=== PATIENT | female | born 1960 | race Caucasian/White ===

== ENCOUNTER 2018-08-25 01:08 | Emergency (ER) | payer OTHER, SELFPAY ==
[2018-08-25 01:16] VITALS: BP 146/89; PULSE 88; RESP 14; TEMP 36.9; O2SAT 98; BMI 25.8
--- NOTE | 2018-08-25 01:18 | ED_ITS ---
HPI - Abdominal Pain General Chief Complaint: Urogenital-Female Stated Complaint: thinks she has a kidney stone Time Seen by Provider: 08/25/18 01:18 Source: patient Mode of arrival: ambulatory Limitations: no limitations History of Present Illness HPI narrative: The patient developed low back pain yesterday morning. The pain has persisted. She now has urinary urgency, and hematuria. She denies associated fever or chills. She does have mild suprapubic discomfort. She had a kidney stone 2 years ago that could not be removed surgically. She reports that the stone never passed. She has no associated changes in appetite, nausea vomiting. The pain is in her lower back, not her mid back. Related Data Previous Rx's Medication Instructions Recorded cephalexin [Keflex] 500 mg PO TID 7 Days #21 cap 08/25/18 Allergies Allergy/AdvReac Type Severity Reaction Status Date / Time Penicillins Allergy Unknown Verified 08/25/18 03:35 Sulfa (Sulfonamide Allergy Unknown Verified 08/25/18 03:35 Antibiotics) Review of Systems Review of Systems All systems reviewed & are unremarkable except as noted in HPI and below Constitutional Denies body ache(s), Denies chills, Denies fever(s) and Denies lethargy ENT Ears, Nose, Mouth, and Throat: Denies neck pain and Denies sore throat Cardiovascular Denies chest pain, Denies palpitations and Denies dyspnea Respiratory Denies cough and Denies dyspnea Gastrointestinal Gastrointestinal: Denies abdominal pain, Denies diarrhea, Denies nausea and Denies vomiting Musculoskeletal Denies back pain and Denies neck pain Integumentary/Breasts Denies rash Endocrine Denies palpitations Hematologic/Lymphatic Denies easy bleeding and Denies easy bruising [facility] Medical History Kidney stone (Acute) No significant past surgical history (Acute) Social History Smoking Status: Never smoker Exam Initial Vital Signs Initial Vital Signs: Vital Signs Temperature 98.4 F 08/25/18 01:16 Pulse Rate 88 08/25/18 01:16 Respiratory Rate 14 08/25/18 01:16 Blood Pressure 146/89 H 08/25/18 01:16 Pulse Oximetry 98 08/25/18 01:16 Const General: cooperative, healthy appearing and comfortable Eyes Conjunctivae: conjunctivae normal Resp Effort & Inspection: normal respiratory effort, able to speak in complete sentences, no respiratory distress and no use of accessory muscles Auscultation: clear to auscultation bilaterally, no rales, no rhonchi and no wheezes Cardio Rate: regular rate Rhythm: regular rhythm Heart Sounds: no click, no gallops, no murmurs and no rubs Pulses: normal peripheral pulses GI Inspection: non-distended Palpation: soft, no hepatosplenomegaly, No guarding, No pulsatile mass and No tender Auscultation: normal bowel sounds Back/Spine/Pelvis Back: No CVA tenderness and other (Mild left lower lumbar tenderness. No restriction of motion.) Skin General: no rashes or lesions noted Neuro General: alert, oriented x3 and no focal motor deficits Speech: speech normal Extrem General: full ROM, no pedal edema and no calf tenderness Course Orders Ordered: ED Orders 08/25/18 01:33 UA Complete [Urinalysis and Microscopic] Stat Urine Culture Stat 08/25/18 02:06 CT kidney ureter bladder (KUB) Stat 08/25/18 02:10 Complete Blood Count AUTO DIFF Stat Comprehensive Metabolic Panel Stat Lactate (Lactic Acid) Stat Lipase Stat Discontinued Medications Sodium Chloride (Normal Saline 0.9%) 1,000 mls @ 250 mls/hr IV CONT AMY Last Infusion: 08/25/18 04:14 Dose: 0 mls/hr Admin: 08/25/18 02:32 Dose: 250 mls/hr Ceftriaxone Sodium/Dextrose (Rocephin) 1 gm in 50 mls @ 100 mls/hr IV NOW ONE Stop: 08/25/18 03:45 Last Infusion: 08/25/18 04:13 Dose: 0 mls/hr Admin: 08/25/18 03:27 Dose: 100 mls/hr Ketorolac Tromethamine (Toradol) 30 mg IV NOW ONE Stop: 08/25/18 02:35 Last Admin: 08/25/18 02:37 Dose: 30 mg Vital Signs - 8 hr 08/25/18 01:16 08/25/18 04:02 08/25/18 04:12 Temperature 98.4 F Pulse Rate 88 79 70 Respiratory Rate 14 14 16 Blood Pressure 146/89 H 121/70 Blood Pressure [Left Arm] 122/91 H Pulse Oximetry 98 98 97 MDM - Abdominal Pain Lab Data Result diagrams: 08/25/18 02:10 08/25/18 02:10 Lab Results 08/25/18 08/25/18 08/25/18 Range/Units 01:33 02:10 02:10 WBC 9.1 (4.5-11.0) X10^3/uL RBC 4.80 (4.0-5.2) X10^6/uL Hgb 14.3 (12.0-16.0) g/dL Hct 43.0 (36-46) % MCV 89.6 (80-100) fL MCH 29.9 (26-34) PG MCHC 33.3 (30-36) % RDW 13.8 (11.6-14.8) % Plt Count 198 (150-400) X10^3/uL Neut % (Auto) 76.5 H (50-75) % Lymph % (Auto) 13.4 L (25-40) % [place] % (Auto) 7.4 (3-14) % Eos % (Auto) 2.1 (2-4) % Baso % (Auto) 0.6 (0-2) % Neut # (Auto) 7000 (2214-4411) /uL Sodium 140 (137-145) mmol/L Potassium 4.3 (3.4-5.1) mmol/L Chloride 104 (98-107) mmol/L Carbon Dioxide 26 (22-32) mmol/L BUN 11 (7-17) mg/dL Creatinine 0.70 (0.52-1.04) mg/dL Estimated GFR > 60.0 (>60) mL/min BUN/Creatinine Ratio 15.7 (6-22) Glucose 97 (70-100) mg/dL Lactate (0.7-2.1) mmol/L Calcium 9.6 (8.4-10.2) mg/dL Total Bilirubin 0.6 (0.2-1.3) mg/dL AST 25 (14-36) IU/L ALT 28 (9-52) IU/L Alkaline Phosphatase 73 (38-126) U/L Total Protein 7.5 (6.3-8.2) g/dL Albumin 4.6 (3.5-5.0) g/dL Globulin 2.9 (1.7-4.1) g/dL Albumin/Globulin Ratio 1.6 (1.0-2.8) Lipase 104 (23-300) U/L Urine Color Yellow Urine Appearance Slightly cloudy Urine pH 6.0 (4.5-8.0) Ur Specific [place] 1.010 (1.000-1.035) Urine Protein Negative (Negative) Urine Glucose (UA) Negative (Normal) g/dL Urine Ketones Negative (NEGATIVE) Urine Occult Blood 3+ H (Negative) Urine Nitrate Negative (Negative) Urine Bilirubin Negative (NEGATIVE) Urine Urobilinogen 0.2 (0.2) E.U./dL Ur Leukocyte Esterase 3+ H (NEGATIVE) Urine RBC 10-30/hpf H (0-5/HPF) Urine WBC 30-100/hpf H (0-5/HPF) Ur Squamous Epith Cells 0-1 /hpf Urine Bacteria Moderate (10-30) H (None) Ur Culture Indicated? Specimen cultured Micro UA Comment Not Reportable 08/25/18 Range/Units 02:10 WBC (4.5-11.0) X10^3/uL RBC (4.0-5.2) X10^6/uL Hgb (12.0-16.0) g/dL Hct (36-46) % MCV (80-100) fL MCH (26-34) PG MCHC (30-36) % RDW (11.6-14.8) % Plt Count (150-400) X10^3/uL Neut % (Auto) (50-75) % Lymph % (Auto) (25-40) % [place] % (Auto) (3-14) % Eos % (Auto) (2-4) % Baso % (Auto) (0-2) % Neut # (Auto) (7617-6763) /uL Sodium (137-145) mmol/L Potassium (3.4-5.1) mmol/L Chloride (98-107) mmol/L Carbon Dioxide (22-32) mmol/L BUN (7-17) mg/dL Creatinine (0.52-1.04) mg/dL Estimated GFR (>60) mL/min BUN/Creatinine Ratio (6-22) Glucose (70-100) mg/dL Lactate 1.2 (0.7-2.1) mmol/L Calcium (8.4-10.2) mg/dL Total Bilirubin (0.2-1.3) mg/dL AST (14-36) IU/L ALT (9-52) IU/L Alkaline Phosphatase (38-126) U/L Total Protein (6.3-8.2) g/dL Albumin (3.5-5.0) g/dL Globulin (1.7-4.1) g/dL Albumin/Globulin Ratio (1.0-2.8) Lipase (23-300) U/L Urine Color Urine Appearance Urine pH (4.5-8.0) Ur Specific [place] (1.000-1.035) Urine Protein (Negative) Urine Glucose (UA) (Normal) g/dL Urine Ketones (NEGATIVE) Urine Occult Blood (Negative) Urine Nitrate (Negative) Urine Bilirubin (NEGATIVE) Urine Urobilinogen (0.2) E.U./dL Ur Leukocyte Esterase (NEGATIVE) Urine RBC (0-5/HPF) Urine WBC (0-5/HPF) Ur Squamous Epith Cells Urine Bacteria (None) Ur Culture Indicated? Micro UA Comment Imaging Data CT scan - abdomen: Radiologist's impression: Bilateral nonobstructing nephrolithiasis. Mild left hydroureteronephrosis. No stones in the ears. Thickened urinary bladder, suggestive of cystitis. MDM Narrative Medical decision making narrative: The patient was evaluated for ureterolithiasis, no obstructing stones were seen. She does have bilateral nephrolithiasis. With the blood seen on the UA along with the pyuria, and the thickening of the bladder noted on CT, she appears to have hemorrhagic cystitis. She will be discharged on antibiotics, with recommended follow up with her PCM. Discharge Plan Departure Patient Disposition: Home Clinical Impression: Acute hemorrhagic cystitis Discharge Date/Time: 08/25/18 04:16 Interventions: ED Discharge Assessment Last Done: 08/25/18 04:12 Instructions: DI for Urinary Tract Infection (UTI) Activity Restrictions/Additional Instructions: Keflex 3 times daily for 7 days. Be sure you are drinking plenty of fluids and stay well hydrated. Take Tylenol or Advil as needed for pain. Return to the ER for increasing pain, or fever. Recheck with her doctor in about 2 weeks to be sure the UTI has been cured. Be sure the blood in the urine has resolved. Prescriptions: New cephalexin [Keflex] 500 mg capsule 500 mg PO TID 7 Days Qty: 21 RF: 0
[2018-08-25 01:52] LABS: Bilirubin Urine UA NEGATIVE (NEGATIVE); Color Urine UA YELLOW; Glucose Urine UA NEGATIVE (Normal); Ketones Urine UA NEGATIVE (NEGATIVE); Leukocyte Esterase Urine UA 3+ (NEGATIVE); Nitrite Urine UA NEGATIVE (Negative); Occult Blood Urine UA 3+ (Negative); Protein Urine UA NEGATIVE (Negative); Urobilinogen Urine UA 0.2 E.U./dL (0.2)
[2018-08-25 01:55] LABS: Appearance Urine UA Slightly Cloudy
[2018-08-25 01:56] LABS: RBC Urine 10-30/HPF (0-5/HPF); Squamous Epithelial Cell Urine 0-1 /HPF; WBC Urine 30-100/HPF (0-5/HPF)
[2018-08-25 01:57] LABS: Bacteria Urine Moderate (10-30); Culture Indicated Urine Specimen Cultured
--- NOTE | 2018-08-25 02:06 | DI.CT.S_ITS ---
PROCEDURE: CT KIDNEY URETER BLADDER (KUB) INDICATIONS: Hematuria. Left flank pain. TECHNIQUE: Noncontrast 5 mm thick sections acquired from the diaphragms to the symphysis. 5 mm thick coronal and sagittal reformats were then performed. For radiation dose reduction, the following was used: automated exposure control, adjustment of mA and/or kV according to patient size. COMPARISON: None. FINDINGS: Image quality: Excellent. Lung bases: Lung bases are clear. Heart size is normal. Urinary system: Both kidneys are normal in size. Nonobstructing stones are seen scattered in bilateral renal parenchyma measures up to 5 mm in size in the pole of right kidney and up to 3 mm in size in the cough left kidney. There is mild prominence of left renal collecting system and left ureter extending to the level of left UVJ. No obstructing stone is seen. No right-sided hydronephrosis or perinephric fat stranding. Both ureters appear non-dilated throughout their expected courses. Borderline bladder wall thickening is seen. No discrete bladder wall mass. no calcified bladder stones. Other solid organs: Liver is normal in size. 1.9 cm cyst is seen in inferior right hepatic lobe posterior segment. Gallbladder is within normal limits. Pancreas is normal in contours. Spleen is normal in size. No adrenal nodules. Peritoneum and bowel: Unenhanced bowel loops demonstrate normal wall thickness and caliber. No free fluid or air. Surgical clips are seen in the right lower quadrant abdomen. No appendix is visualized. Finding likely represent prior appendectomy. Nodes and vessels: No retroperitoneal or mesenteric adenopathy by size criteria. Aorta and inferior vena cava are normal in caliber. Abdominal wall: There is a small periumbilical hernia containing fat only. Pelvis: No free pelvic fluid. No inguinal hernias or adenopathy. Bones: No suspicious bony lesions. No vertebral body compression fractures. IMPRESSION: 1. Mild left-sided hydronephrosis or hydroureter. No obstructing renal stone or ureteral stone is seen. Finding could represent a passed stone. Very mild bladder wall thickening, cystitis cannot be excluded. 2. Bilateral nonobstructing renal calculi. No right-sided hydronephrosis or hydroureter. 3. Small right hepatic cyst. Small fat-containing of helical hernia. No significant discrepancies. Dictated by: Tigre Lopez M.D. on 08/25/2018 at 8:38 Approved by: Tigre Lopez M.D. on 08/25/2018 at 8:45
[2018-08-25] MEDS: SODIUM CHLORIDE 0.9% 1,000 ML 250 ML IV (02:32)
[2018-08-25] MEDS: KETOROLAC 60 MG/2 ML VIAL 30 MG IV (02:37)
[2018-08-25 02:41] LABS: Add Manual Diff / Slide Review NO; Basophils Percent Auto 0.6 % (0-2); Eosinophils Percent Auto 2.1 % (2-4); Hemoglobin 14.3 g/dL (12.0-16.0); Lymphocytes Percent Auto 13.4 % (25-40); Mean Corpuscular HGB Conc 33.3 % (30-36); Mean Corpuscular Hemoglobin 29.9 PG (26-34); Mean Corpuscular Volume 89.6 fL (80-100); Monocytes Percent Auto 7.4 % (3-14); Neutrophils Absolute Auto 7000 /uL (1500-7000); Neutrophils Percent Auto 76.5 % (50-75); Platelet Count 198 X10^3/uL (150-400); Red Cell Distribution Width 13.8 % (11.6-14.8); White Blood Cell Count 9.1 X10^3/uL (4.5-11.0)
[2018-08-25 02:44] LABS: Alanine Aminotransferase 28 IU/L (9-52); Albumin 4.6 g/dL (3.5-5.0); Albumin Globulin Ratio 1.6 (1.0-2.8); Alkaline Phosphatase 73 U/L (38-126); Aspartate Aminotransferase 25 IU/L (14-36); BUN Creatinine Ratio 15.7 (6-22); Bilirubin Total 0.6 mg/dL (0.2-1.3); Blood Urea Nitrogen 11 mg/dL (7-17); Calcium 9.6 mg/dL (8.4-10.2); Carbon Dioxide 26 mmol/L (22-32); Chloride 104 mmol/L (98-107); Estimated Glomerular Filt Rate > 60.0 mL/min (>60); Globulin 2.9 g/dL (1.7-4.1); Glucose 97 mg/dL (70-100); HEMOLYSIS < 15 (0-50); Lactate (Lactic Acid) 1.2 mmol/L (0.7-2.1); Lipase 104 U/L (23-300); Potassium 4.3 mmol/L (3.4-5.1); Sodium 140 mmol/L (137-145); Total Protein 7.5 g/dL (6.3-8.2)
[2018-08-25] MEDS: CEFTRIAXONE 1 GM/50 ML FROZ.PIGGY IV (03:27)
[2018-08-25 04:02] VITALS: BP 122/91; PULSE 79; RESP 14; O2SAT 98
[2018-08-25 04:12] VITALS: BP 121/70; PULSE 70; RESP 16; O2SAT 97
== END 2018-08-25 04:16 | disposition home or self-care (01) ==
PROVIDERS: Emergency Provider Emergency Medicine
DX: N30.01 Acute cystitis with hematuria (principal)
CPT/HCPCS: 36591; 74176; 80053; 81001; 83605; 83690; 85025; 87077; 87086; 87186; 96361; 96365; 96375; 99283; 99284; J1885

== ENCOUNTER → 2018-09-21 12:14 | Outpatient (CLI) | payer OTHER, SELFPAY | PROVIDERS: Visit Provider Physician Assistant | DX: N39.0 Urinary tract infection, site not specified (principal) | CPT/HCPCS: 87086 ==

== ENCOUNTER → 2018-09-28 13:56 | Outpatient (CLI) | payer OTHER, SELFPAY | PROVIDERS: PCP Family Medicine; Visit Provider Family Medicine | DX: Z78.0 Asymptomatic menopausal state (principal); Z85.3 Personal history of malignant neoplasm of breast; E28.39 Other primary ovarian failure; Z92.21 Personal history of antineoplastic chemotherapy | CPT/HCPCS: 77080 ==

== ENCOUNTER → 2018-10-12 13:51 | Outpatient (CLI) | payer OTHER, SELFPAY ==
--- NOTE | 2018-10-12 14:27 | DI.CT.S_ITS ---
PROCEDURE: CT CHEST W CON INDICATIONS: surveillance breast cancer TECHNIQUE: After the administration of intravenous contrast, 5 mm thick sections acquired from the pulmonary apices to the posterior costophrenic angles. 7 mm thick coronal and sagittal MIP reformats were acquired. For radiation dose reduction, the following was used: automated exposure control, adjustment of mA and/or kV according to patient size. COMPARISON: [facility], CT, CT KIDNEY URETER BLADDER (KUB), 08/25/2018, 2:05. FINDINGS: Image quality: Excellent. Lungs and pleura: No acute air space opacities. No pleural effusions or pneumothorax. Central and peripheral airways are patent and normal in caliber. There is a 4 mm groundglass like appearing nodule in the right upper lobe on series 3 image 17. Similar-appearing nodule is present along the right major fissure measuring 4 mm on series 3 image 28. A third nodule in the right lower lobe measuring 3 mm is seen on series 3 image 29. 7 mm nodule is present within the right base adjacent to the hemidiaphragm, unchanged. There are two, 2 mm nodules within the left lower lobe on series 3 image 31. Mediastinum: Heart size is normal. No pericardial effusion. No mediastinal or hilar adenopathy by size criteria. Thoracic aorta and central pulmonary arteries are normal in size. Esophagus is normal in caliber. No hiatal hernia. Bones and chest wall: No suspicious bony lesions. No vertebral body compression fractures. No axillary or supraclavicular adenopathy by size criteria. Thyroid gland is unremarkable. Abdomen: Partially visualized low attenuation focus within the posterior liver, appearing unchanged and likely cystic. Nonobstructing left renal calculi are noted. Visualized upper abdominal solid organs appear normal. Upper abdominal bowel loops are normal in caliber. IMPRESSION: 1. Non-specific bilateral nodules some appearing to be groundglass like in appearance. The largest is 7 mm in the left base and unchanged compared to 08/25/18. Recommend continued short interval imaging followup to document stability given history of breast cancer. Dictated by: Angie Brady M.D. on 10/12/2018 at 16:07 Approved by: Angie Brady M.D. on 10/12/2018 at 16:15
== END ==
PROVIDERS: PCP Family Medicine
DX: C50.919 Malignant neoplasm of unspecified site of unspecified female breast (principal); R91.8 Other nonspecific abnormal finding of lung field
CPT/HCPCS: 71260; Q9967

== ENCOUNTER → 2018-12-19 11:55 | Outpatient (CLI) | payer OTHER, SELFPAY | PROVIDERS: PCP Family Medicine; Visit Provider Physician Assistant | DX: R39.9 Unspecified symptoms and signs involving the genitourinary system (principal) | CPT/HCPCS: 87086 ==

== ENCOUNTER → 2018-12-23 12:15 | Outpatient (CLI) | payer OTHER, SELFPAY ==
--- NOTE | 2018-12-23 | DI.MG.S_ITS ---
BILATERAL DIGITAL SCREENING MAMMOGRAM 3D/2D WITH CAD POST LUMPECTOMY: 12/23/2018 CLINICAL: Routine screening. Personal history of breast cancer. Comparison is made to exams dated: 12/22/2017 mammogram, 06/19/2017 mammogram, and 12/18/2016 [facility]ogram - [facility]. The tissue of both breasts is extremely dense, which lowers the sensitivity of mammography. Current study was also evaluated with a Computer Aided Detection (CAD) system. No significant masses, calcifications, or other findings are seen in either breast. IMPRESSION: NEGATIVE There is no mammographic evidence of malignancy. Return to annual mammogram screening schedule is recommended. This exam was interpreted at Station ID: [id number]. NOTE: For mammograms, a report in lay terms will be sent to the patient. Approximately 15% of breast malignancies will not be visualized mammographically. In the management of a palpable breast mass, a negative mammogram must not discourage biopsy of a clinically suspicious lesion. Electronically Signed By: Roslyn Arreaga M.D. lk/:12/25/2018 13:41:50 copy to: NATIVIDAD YIP letter sent: Normal Exam ACR BI-RADS Category 1: Negative 3341F
== END ==
PROVIDERS: PCP Family Medicine
DX: Z12.31 Encounter for screening mammogram for malignant neoplasm of breast (principal); Z85.3 Personal history of malignant neoplasm of breast
CPT/HCPCS: 77063; 77067

== ENCOUNTER → 2018-12-30 15:52 | Outpatient (CLI) | payer OTHER, SELFPAY | PROVIDERS: PCP Family Medicine; Visit Provider Family Medicine | DX: N89.8 Other specified noninflammatory disorders of vagina (principal) | CPT/HCPCS: 87077; 87086; 87186; 87491; 87591 ==

== ENCOUNTER → 2019-01-05 15:33 | Outpatient (CLI) | payer OTHER, SELFPAY | PROVIDERS: PCP Family Medicine; Visit Provider Family Medicine ==

== ENCOUNTER → 2019-04-05 12:33 | Outpatient (CLI) | payer OTHER, SELFPAY ==
--- NOTE | 2019-04-05 12:35 | DI.CT.S_ITS ---
PROCEDURE: CT CHEST W CON INDICATIONS: f/u nodules, h/o breast cancer TECHNIQUE: After the administration of intravenous contrast, 5 mm thick sections acquired from the pulmonary apices to the posterior costophrenic angles. 1 mm axial lung, 5 mm thick coronal and sagittal reformats and 7 mm axial MIP were acquired. For radiation dose reduction, the following was used: automated exposure control, adjustment of mA and/or kV according to patient size. COMPARISON: [facility], CT, CT CHEST W CON, 10/12/2018, 13:58. FINDINGS: Image quality: Excellent. Lungs and pleura: Stable several scattered groundglass pulmonary nodules. -For example right lower lobe nodule measuring 7 mm, (3/240), previously 7 mm, and more remotely 8 mm on 08/25/2018. -Right upper lobe nodule measuring 5 mm, (3/74), previously 5 mm. No new nodules identified. No consolidation. No pleural effusions or pneumothorax. Central and peripheral airways are patent and normal in caliber. Mediastinum: Heart size is normal. No pericardial effusion. No mediastinal or hilar adenopathy by size criteria. Thoracic aorta and central pulmonary arteries are normal in size. Esophagus is normal in caliber. No hiatal hernia. Bones and chest wall: No suspicious bony lesions. No vertebral body compression fractures. Right axillary clips. No axillary or supraclavicular adenopathy by size criteria. Thyroid gland is within normal limits. Punctate hypodense nodule in the right. Abdomen: Left kidney superior pole monitor and calculus measuring 4 mm, (2/56), unchanged. Visualized upper abdominal solid organs otherwise appear normal. Upper abdominal bowel loops are normal in caliber. IMPRESSION: 1. Stable scattered ground glass pulmonary nodules. The nodule at the right lower lobe this groundglass and measures 7 mm and is not significantly changed in size compared to August 2018. No new nodules identified. Differential includes metastatic disease, infectious/inflammatory etiology. 2. No suspicious adenopathy. 3. Nonobstructing renal stone the left kidney. Dictated by: Marc Delgado M.D. on 04/05/2019 at 14:25 Approved by: Marc Delgado M.D. on 04/05/2019 at 14:56
[2019-04-05 13:00] LABS: Add Manual Diff / Slide Review NO; Basophils Absolute Auto 0 /uL (0-100); Eosinophils Absolute Auto 100 /uL (0-450); Eosinophils Percent Auto 4.6 % (2-4); Hematocrit 42.9 % (36-46); Hemoglobin 14.2 g/dL (12.0-16.0); Lymphocytes Absolute Auto 1400 /uL (1100-4500); Lymphocytes Percent Auto 44.1 % (25-40); Mean Corpuscular HGB Conc 33.2 % (30-36); Mean Corpuscular Hemoglobin 30.1 PG (26-34); Mean Corpuscular Volume 90.6 fL (80-100); Monocytes Absolute Auto 400 /uL (0-900); Monocytes Percent Auto 11.3 % (3-14); Neutrophils Absolute Auto 1200 /uL (1500-7000); Platelet Count 198 X10^3/uL (150-400); Red Blood Cell Count 4.73 X10^6/uL (4.0-5.2); Red Cell Distribution Width 13.9 % (11.6-14.8); White Blood Cell Count 3.1 X10^3/uL (4.5-11.0)
[2019-04-05 13:17] LABS: Alanine Aminotransferase 33 IU/L (9-52); Albumin 4.5 g/dL (3.5-5.0); Albumin Globulin Ratio 1.5 (1.0-2.8); Alkaline Phosphatase 84 U/L (38-126); Aspartate Aminotransferase 26 IU/L (14-36); BUN Creatinine Ratio 26.7 (6-22); Bilirubin Total 0.6 mg/dL (0.2-1.3); Blood Urea Nitrogen 16 mg/dL (7-17); Calcium 9.8 mg/dL (8.4-10.2); Carbon Dioxide 23 mmol/L (22-32); Chloride 107 mmol/L (98-107); Estimated Glomerular Filt Rate > 60.0 mL/min (>60); Glucose 88 mg/dL (70-100); HEMOLYSIS < 15 (0-50); Potassium 4.3 mmol/L (3.4-5.1); Sodium 140 mmol/L (137-145); Total Protein 7.5 g/dL (6.3-8.2)
== END ==
PROVIDERS: PCP Family Medicine
DX: C50.919 Malignant neoplasm of unspecified site of unspecified female breast (principal); R91.8 Other nonspecific abnormal finding of lung field; N20.0 Calculus of kidney
CPT/HCPCS: 36415; 71260; 80053; 85025; Q9967

== ENCOUNTER → 2019-10-21 12:23 | Outpatient (CLI) | payer OTHER, SELFPAY ==
[2019-10-21 13:36] LABS: HEMOLYSIS < 15 (0-50); Potassium 4.5 mmol/L (3.4-5.1)
== END ==
PROVIDERS: PCP Nurse Practitioner Family; Referring Provider Nurse Practitioner Family; Visit Provider Nurse Practitioner Family
DX: E87.5 Hyperkalemia (principal)
CPT/HCPCS: 36415; 84132

== ENCOUNTER → 2019-10-25 09:57 | Outpatient (CLI) | payer OTHER, SELFPAY ==
[2019-10-25 11:07] LABS: Cholesterol 189 mg/dL (140-199); HDL Cholesterol 59 mg/dL (40-60); LDL Cholesterol Calculated 95 mg/dL (<100); Triglycerides 173 mg/dL (35-150)
== END ==
PROVIDERS: PCP Nurse Practitioner Family; Referring Provider Nurse Practitioner Family; Visit Provider Nurse Practitioner Family
DX: Z13.6 Encounter for screening for cardiovascular disorders (principal)
CPT/HCPCS: 36415; 80061

== ENCOUNTER → 2020-02-19 09:42 | Outpatient (CLI) | payer OTHER, SELFPAY ==
--- NOTE | 2020-02-19 09:56 | DI.MG.S_ITS ---
BILATERAL DIGITAL SCREENING MAMMOGRAM 3D/2D WITH CAD POST LUMPECTOMY: 02/19/2020 CLINICAL: Routine screening. Personal history of right breast cancer. Comparison is made to exams dated: 12/23/2018 mammogram - [facility], 12/22/2017 mammogram, and 06/19/2017 mammogram - [facility]. There are scattered fibroglandular elements in both breasts. Current study was also evaluated with a Computer Aided Detection (CAD) system. There are benign calcifications in the left breast. There also are benign post operative findings in the right breast. No significant masses, calcifications, or other findings are seen in either breast. There has been no significant interval change. IMPRESSION: There is no mammographic evidence of malignancy. A 1 year screening mammogram is recommended. This exam was interpreted at Station ID: [id number]. NOTE: For mammograms, a report in lay terms will be sent to the patient. Approximately 15% of breast malignancies will not be visualized mammographically. In the management of a palpable breast mass, a negative mammogram must not discourage biopsy of a clinically suspicious lesion. Electronically Signed By: Massimo nava/rc:02/21/2020 08:40:40 copy to: HERO COLE letter sent: Normal Exam ACR BI-RADS Category 2: Benign Finding(s) 3342F
== END ==
PROVIDERS: PCP Nurse Practitioner Family; Referring Provider Internal Medicine Hematology & Oncology; Visit Provider Internal Medicine Hematology & Oncology
DX: Z12.31 Encounter for screening mammogram for malignant neoplasm of breast (principal); Z85.3 Personal history of malignant neoplasm of breast
CPT/HCPCS: 77063; 77067

== ENCOUNTER → 2020-02-29 10:43 | Outpatient (CLI) | payer OTHER, SELFPAY ==
--- NOTE | 2020-02-29 | DI.CT.S_ITS ---
PROCEDURE: CT KIDNEY URETER BLADDER (KUB) INDICATIONS: Personal history of urinary calculi TECHNIQUE: Noncontrast 5 mm thick sections acquired from the diaphragms to the symphysis. 5 mm thick coronal and sagittal reformats were then performed. For radiation dose reduction, the following was used: automated exposure control, adjustment of mA and/or kV according to patient size. COMPARISON: [facility], CT, CT KIDNEY URETER BLADDER (KUB), 08/25/2018, 2:05. FINDINGS: Image quality: Excellent. Lung bases: Lung bases are clear. Heart size is normal. Urinary system: Both kidneys are normal in size. There are approximately 3 punctate nonobstructing left hand for nonobstructing right renal calcifications. There is a calcification noted at the margin of the right renal pelvis/proximal ureter. This appears new compared to prior exam. No hydronephrosis or perinephric fat stranding. Both ureters appear non-dilated throughout their expected courses. Bladder wall thickness is normal; no calcified bladder stones. Other solid organs: Liver is enlarged steatosis. Posterior right hepatic lobe cyst is noted. Gallbladder is unremarkable. Pancreas is normal in contours. Spleen is normal in size. No adrenal nodules. Peritoneum and bowel: Unenhanced bowel loops demonstrate normal wall thickness and caliber. No free fluid or air. Colonic diverticula are present. Nodes and vessels: No retroperitoneal or mesenteric adenopathy by size criteria. Aorta and inferior vena cava are normal in caliber. Abdominal wall: No ventral hernias. Pelvis: No free pelvic fluid. No inguinal hernias or adenopathy. Bones: No suspicious bony lesions. No vertebral body compression fractures. IMPRESSION: 1. Bilateral nonobstructing renal calculi as above. 2. Diverticulosis. 3. Hepatic cyst. Dictated by: Angie Brady M.D. on 02/29/2020 at 15:55 Approved by: Angie Brady M.D. on 02/29/2020 at 15:58
== END ==
PROVIDERS: PCP Nurse Practitioner Family; Referring Provider Physician Assistant; Visit Provider Physician Assistant
DX: N20.0 Calculus of kidney (principal); K76.89 Other specified diseases of liver; K76.0 Fatty (change of) liver, not elsewhere classified; K57.90 Diverticulosis of intestine, part unspecified, without perforation or abscess without bleeding; Z87.442 Personal history of urinary calculi
CPT/HCPCS: 74176

== ENCOUNTER → 2020-04-05 13:23 | Outpatient (CLI) | payer OTHER, SELFPAY ==
[2020-04-05 16:09] LABS: Calcium 10.2 mg/dL (8.4-10.2); Uric Acid 4.4 mg/dL (2.5-6.2)
[2020-04-06 08:11] LABS: Parathyroid Hormone Int 19 pg/mL (15-65)
== END ==
PROVIDERS: Specialist; PCP Nurse Practitioner Family; Referring Provider Nurse Practitioner Family; Visit Provider Nurse Practitioner Family
DX: C50.911 Malignant neoplasm of unspecified site of right female breast; M85.852 Other specified disorders of bone density and structure, left thigh; Z78.0 Asymptomatic menopausal state; N20.0 Calculus of kidney; N39.0 Urinary tract infection, site not specified; R30.0 Dysuria; Z17.0 Estrogen receptor positive status [ER+]; Z79.811 Long term (current) use of aromatase inhibitors
CPT/HCPCS: 36415; 77080; 82310; 83970; 84550

== ENCOUNTER 2020-09-14 10:36 | Emergency (ER) | payer OTHER, SELFPAY ==
[2020-09-14 10:42] VITALS: BP 160/89; PULSE 76; RESP 16; TEMP 36.5; O2SAT 100; BMI 25.7
--- NOTE | 2020-09-14 10:55 | ED_ITS ---
HPI - Female Genitourinary <LIONEL Azul-BC - Last Filed: 09/14/20 15:04> General Chief complaint: Urogenital-Female Stated complaint: UTI Time Seen by Provider: 09/14/20 10:45 Source: patient Mode of arrival: Ambulatory Limitations: no limitations History of Present Illness HPI Narrative: The patient is a 60-year-old female former smoker with history of urinary tract infections who presents with a chief complaint of a UTI. She states this has been ongoing for the past 2 days. She has dysuria urgency or frequency. She noticed some color change to her urine. She denies any flank pain or back pain. She denies any abdominal pain nausea vomiting or diarrhea. She denies any vaginal bleeding, vaginal discharge or concern about sexually transmitted infections. MD Complaint: UTI Related Data Home Medications Medication Instructions Recorded Confirmed ibuprofen 200 mg tablet 400 mg PO Q6H PRN tab 10/21/19 04/18/20 ascorbic acid 1,000 1,000 mg PO DAILY PRN 04/18/20 04/18/20 pn-erfsmhcxomux-msbudstm powder effervescent pack Previous Rx's Medication Instructions Recorded anastrozole [Arimidex] 1 mg PO DAILY #90 tab 03/02/20 nitrofurantoin macrocrystal 100 mg PO BID #14 cap 09/14/20 Allergies Allergy/AdvReac Type Severity Reaction Status Date / Time Penicillins Allergy Intermediate Blisters Verified 09/14/20 10:45 on palms and feet. Sulfa (Sulfonamide Allergy Intermediate Turns Verified 09/14/20 10:45 Antibiotics) bright red all over cephalexin AdvReac Mild Slight Verified 09/14/20 10:45 rash on forehead latex AdvReac unsure of Verified 09/14/20 10:45 reaction. Review of Systems <ANTHONY AzulBC - Last Filed: 09/14/20 15:04> Review of Systems Narrative: GENERAL: Denies chills, fatigue, malaise, fever, sweats. HEENT: Denies sinus pain, ear pain, sore throat, difficulty swallowing, dizziness. RESPIRATORY: Denies dyspnea, cough, wheezing, hemoptysis, sputum. CARDIOVASCULAR: Denies chest pain, palpitations, orthopnea, edema, GASTROINTESTINAL: Denies nausea, vomiting, abdominal pain, diarrhea, constipation, melena. : See HPI MUSCULOSKELETAL: denies weakness, joint pain, or bony pain SKIN: Denies rash, skin lesions, or other NEUROLOGIC: Denies weakness, headache, numbness, change in speech, confusion, s eizures, incoordination. PSYCHIATRIC: No concerning psychosocial issues. 12 point review of systems is negative except for those stated above Patient History <MICHAEL Azul - Last Filed: 09/14/20 15:04> Medical History Abnormal chest xray (~2015) Alopecia (~2017) Aromatase inhibitor use (11/2015) Bilateral nephrolithiasis Bilateral nephrolithiasis Breast cancer (~2015) Heavy menstrual period History of radiation therapy (~2015) History of recurrent UTI (urinary tract infection) Irregular menstrual cycle Osteopenia Painful menstrual periods Recurrent UTI (urinary tract infection) Vision disorder Surgical History Anesthesia History of delivery (~1995) History of delivery (~1999) History of eye surgery (~2013) History of lumpectomy (~2015) Kidney stone (~2014) No significant past surgical history Family History Father No problems noted. Mother Cancer Grandmother Cancer Grandmother Cancer alcohol intake frequency: a few times a week Substance Use Type: marijuana Exam <MICHAEL Azul - Last Filed: 09/14/20 15:04> Narrative Exam Narrative: GENERAL: This is a well-nourished, well-developed patient, in no acute distress HEAD: Atraumatic. Normocephalic. No temporal or scalp tenderness. EYES: Pupils equal round and reactive. Extraocular motions intact. No scleral icterus. No injection or drainage. ENT: Nose without bleeding, purulent drainage or septal hematoma. Wearing a mask Airway patent. NECK: Trachea midline. No JVD or lymphadenopathy. Supple, nontender, no meningeal signs. CARDIOVASCULAR: Regular rate and rhythm RESPIRATORY: Clear to auscultation. Breath sounds equal bilaterally. No wheezes, rales, or rhonchi. No cough. No increased respiratory effort. No accessory muscle use GASTROINTESTINAL: Abdomen soft, non-tender, nondistended. No guarding Active bowel sounds all 4 quadrants. No CVA tenderness to palpation. EXTREMITIES: No clubbing, cyanosis, or edema. No joint tenderness, effusion, or edema noted. BACK: Nontender without deformity or crepitance. No flank tenderness. NEURO: AOx3. SKIN: No rash or erythema on visible skin Initial Vital Signs Initial Vital Signs: Vital Signs Temperature 97.7 F 09/14/20 10:42 Pulse Rate 76 09/14/20 10:42 Respiratory Rate 16 09/14/20 10:42 Blood Pressure 160/89 H 09/14/20 10:42 Pulse Oximetry 100 09/14/20 10:42 <Rach Sprague MD - Last Filed: 09/15/20 07:34> Initial Vital Signs Initial Vital Signs: Vital Signs Temperature 97.7 F 09/14/20 10:42 Pulse Rate 76 09/14/20 10:42 Respiratory Rate 16 09/14/20 10:42 Blood Pressure 160/89 H 09/14/20 10:42 Pulse Oximetry 100 09/14/20 10:42 Scores <MICHAEL Azul - Last Filed: 09/14/20 15:04> GCS [place] coma scale eye opening: Spontaneous [place] coma scale verbal response: Orientated Carla coma scale motor response: Obey commands [place] coma scale total score: 15 Course <MICHAEL Azul - Last Filed: 09/14/20 15:04> Orders Ordered: Discontinued Medications Nitrofurantoin Macrocrystals (Nitrofurantoin Er 100 Mg Capsule) 100 mg PO NOW ONE Stop: 09/14/20 11:20 Last Admin: 09/14/20 11:26 Dose: 100 mg Documented by: DEBOARHM Vital Signs Vital signs: Vital Signs - 8 hr 09/14/20 10:42 09/14/20 11:48 Temperature 97.7 F Pulse Rate 76 61 Respiratory Rate 16 Blood Pressure 160/89 H 147/95 H Pulse Oximetry 100 99 <Rach Sprague MD - Last Filed: 09/15/20 07:34> Orders Ordered: Discontinued Medications Nitrofurantoin Macrocrystals (Nitrofurantoin Er 100 Mg Capsule) 100 mg PO NOW ONE Stop: 09/14/20 11:20 Last Admin: 09/14/20 11:26 Dose: 100 mg Documented by: KBROTEM Vital Signs Vital signs: Vital Signs - 8 hr 09/14/20 10:42 09/14/20 11:48 Temperature 97.7 F Pulse Rate 76 61 Respiratory Rate 16 Blood Pressure 160/89 H 147/95 H Pulse Oximetry 100 99 MDM - Female Genitourinary <LIONEL Azul-BC - Last Filed: 09/14/20 15:04> Lab Data Labs: Lab Results 09/14/20 Range/Units 10:48 Urine RBC 5-10/hpf H (0-5/HPF) Urine WBC 10-30/hpf H (0-5/HPF) Ur Squamous Epith Cells 1-5 /hpf (0-5/HPF) Amorphous Sediment 2+ Urine Bacteria Many (>30) H (None) Ur Culture Indicated? Specimen cultured Urine Dip Bedside Urine Glucose Negative Bedside Urine Bilirubin - Negative Bedside Urine Ketone - Negative Urine Specific [place] 1.020 Bedside Urine Occult Blood +/- Bedside Urine pH 6.5 Bedside Urine Protein - Negative Bedside Urine Urobilinogen - Negative Bedside Urine Nitrite - Negative Bedside Urine Leukocytes +++ 500 Esterase MDM Narrative Medical decision making narrative: The patient is a 60-year-old female who presents with a chief complaint dysuria urgency and frequency. She has no signs of systemic illness. She has no fever, no flank pain and is afebrile and hemodynamically stable throughout her stay. Given hematuria, leukocyte esterase and bacteria on her urinalysis, will start patient on antibiotics for urinary tract infection. She has no signs of pyelonephritis as she has no flank pain or fever. I discussed at length monitoring for signs of worsening such as flank pain fever etcetera. Encouraged follow-up with primary care provider in the next few days. Urine cultures pending. Patient has no questions or concerns upon discharge and states understanding return precautions as well as follow-up care. <Rach Sprague MD - Last Filed: 09/15/20 07:34> Lab Data Labs: Lab Results 09/14/20 Range/Units 10:48 Urine RBC 5-10/hpf H (0-5/HPF) Urine WBC 10-30/hpf H (0-5/HPF) Ur Squamous Epith Cells 1-5 /hpf (0-5/HPF) Amorphous Sediment 2+ Urine Bacteria Many (>30) H (None) Ur Culture Indicated? Specimen cultured Urine Dip Bedside Urine Glucose Negative Bedside Urine Bilirubin - Negative Bedside Urine Ketone - Negative Urine Specific [place] 1.020 Bedside Urine Occult Blood +/- Bedside Urine pH 6.5 Bedside Urine Protein - Negative Bedside Urine Urobilinogen - Negative Bedside Urine Nitrite - Negative Bedside Urine Leukocytes +++ 500 Esterase Discharge Plan Departure Patient Disposition: Home Clinical Impression: Urinary tract infection Qualifiers: Urinary tract infection type: site unspecified Hematuria presence: with hematuria Qualified Code(s): N39.0 - Urinary tract infection, site not specified Instructions: DI for Urinary Tract Infection (UTI) Activity Restrictions/Additional Instructions: Thank you for trusting us with your care today As discussed, your urine is concerning for infection. I sent a prescription of an antibiotic to [facility]. Please take this with probiotic or yogurt to help prevent antibiotic related side effects. As discussed, please monitor for fever, inability keep down fluids, flank pain as these can all be signs of a kidney infection. Please push fluids. Please come back to the emergency department for any acute concerns. Please follow-up with primary care provider in the next few days Prescriptions: New nitrofurantoin macrocrystal 100 mg capsule 100 mg PO BID Qty: 14 RF: 0 No Action ibuprofen [Advil] 200 mg tablet 400 mg PO Q6H PRN (Reason: Pain (Scale Score 4-6)) RF: 0 Emergen-C 1,000 mg powder effervescent in packet 1,000 mg PO DAILY PRNRF: 0 anastrozole [Arimidex] 1 mg Tablet 1 mg PO DAILY Qty: 90 RF: 4 Referrals: Eli Licona ARNP [Primary Care Provider] - <Rach Sprague MD - Last Filed: 09/15/20 07:34> [facility]: I was immediately available in the department for consultation throughout this patient's visit. I agree with documentation as above. Rach Sprague MD
[2020-09-14 11:04] LABS: RBC Urine 5-10/HPF (0-5/HPF); Squamous Epithelial Cell Urine 1-5 /HPF (0-5/HPF); WBC Urine 10-30/HPF (0-5/HPF)
[2020-09-14 11:05] LABS: Amorphous Sediment Urine 2+; Bacteria Urine Many (>30); Culture Indicated Urine Specimen Cultured
[2020-09-14] MEDS: NITROFURANTOIN ER 100 MG CAPSULE PO (11:26)
[2020-09-14 11:48] VITALS: BP 147/95; PULSE 61; O2SAT 99
== END 2020-09-14 11:48 | disposition home or self-care (01) ==
PROVIDERS: Emergency Provider Nurse Practitioner Family; PCP Nurse Practitioner Family
DX: N39.0 Urinary tract infection, site not specified (principal)
CPT/HCPCS: 81003; 81015; 87077; 87086; 87186; 99281; 99283

== ENCOUNTER → 2020-12-25 09:01 | Outpatient (CLI) | payer OTHER, SELFPAY ==
[2020-12-25 09:45] LABS: Hematocrit 42.5 % (36-46); Hemoglobin 14.2 g/dL (12.0-16.0); Mean Corpuscular HGB Conc 33.4 % (30-36); Mean Corpuscular Hemoglobin 29.8 PG (26-34); Mean Corpuscular Volume 89.4 fL (80-100); Platelet Count 200 X10^3/uL (150-400); Red Blood Cell Count 4.76 X10^6/uL (4.0-5.2); Red Cell Distribution Width 14.2 % (11.6-14.8); White Blood Cell Count 3.3 X10^3/uL (4.5-11.0)
[2020-12-25 10:49] LABS: Alanine Aminotransferase 26 IU/L (<35); Albumin 4.1 g/dL (3.5-5.0); Albumin Globulin Ratio 1.5 (1.0-2.8); Alkaline Phosphatase 73 U/L (38-126); Aspartate Aminotransferase 25 IU/L (14-36); BUN Creatinine Ratio 11.7 (6-22); Bilirubin Total 0.4 mg/dL (0.2-1.3); Blood Urea Nitrogen 7 mg/dL (7-17); Calcium 9.7 mg/dL (8.4-10.2); Carbon Dioxide 23 mmol/L (22-32); Chloride 109 mmol/L (98-107); Cholesterol 172 mg/dL (140-199); Estimated Glomerular Filt Rate > 60.0 mL/min (>60); Globulin 2.7 g/dL (1.7-4.1); Glucose 95 mg/dL (80-110); HDL Cholesterol 64 mg/dL (40-60); HEMOLYSIS < 15 (0-50); LDL Cholesterol Calculated 78 mg/dL (<100); Potassium 4.5 mmol/L (3.4-5.1); Sodium 139 mmol/L (137-145); Total Protein 6.8 g/dL (6.3-8.2); Triglycerides 151 mg/dL (35-150)
== END ==
PROVIDERS: PCP Nurse Practitioner Family; Referring Provider Nurse Practitioner Family; Visit Provider Nurse Practitioner Family
DX: Z00.00 Encounter for general adult medical examination without abnormal findings (principal); M85.852 Other specified disorders of bone density and structure, left thigh; E78.1 Pure hyperglyceridemia
CPT/HCPCS: 36415; 80053; 80061; 85027

== ENCOUNTER → 2021-02-26 13:03 | Outpatient (CLI) | payer OTHER, SELFPAY ==
--- NOTE | 2021-02-26 13:05 | DI.CT.S_ITS ---
PROCEDURE: CT CHEST WO CON INDICATIONS: pulmonary nodules TECHNIQUE: Noncontrast 2.0-2.5 mm thick sections acquired from the pulmonary apices to the posterior costophrenic angles. 7 mm thick axial MIP and 5 mm coronal and sagittal reformats were then acquired. A low radiation dose technique was utilized. COMPARISON: [facility], CT, CT KIDNEY URETER BLADDER (KUB), 08/25/2018, 2:05. [facility], CT, CT CHEST W CON, 04/05/2019, 13:31. [facility], CT, CT KIDNEY URETER BLADDER (KUB), 02/29/2020, 10:54. FINDINGS: Image quality: Diagnostic, given the low radiation dose technique. Lungs and pleura: Previously described scattered subcentimeter ground-glass nodular opacities are grossly unchanged some of which dating back to 08/25/18 ) measuring up to 7 mm in the right lung base image 220/4) and therefore thought to be benign/post inflammatory nature. Additional 2 mm nodule in the subpleural left lower lobe on image 163/4 is unchanged. Scattered subsegmental atelectasis and/or scarring. No focal consolidation. Airway thickening in keeping with nonspecific bronchitis and/or reactive airways disease. Mediastinum: Heart size is normal. No pericardial effusion. No mediastinal adenopathy by size criteria. Thoracic aorta and central pulmonary arteries are normal in size. Esophagus is normal in caliber. No hiatal hernia. Bones and chest wall: No suspicious bony lesions. No vertebral body compression fractures. No axillary or supraclavicular adenopathy by size criteria. Thyroid gland negative . Abdomen: Nonobstructive 3 mm left nephrolithiasis. IMPRESSION: Overall, grossly stable examination. Redemonstration of sub cm ground-glass pulmonary nodules probably dating back to 2017. 2 year follow-up CT chest per Fleischner criteria below is recommended in August 2023 for 5 year total surveillance. Additional chronic and incidental findings as above. Fleischner Society criteria for SOLID lung nodule followup. Nodule size (mm)Low-risk patientHigh-risk patient<6 (single or multiple)No routine followup.Optional CT at 12 months. 6-8 (single or multiple)CT at 6-12 months, then optional CT at 18-24 mo.CT at 6-12 months, then CT at 18-24 months. >8 (single)CT at 3 months, PET-CT, or biopsy. Same as for low-risk pts. >8 (multiple)CT at 3-6 months, then optional CT at 18-24 mo.CT at 3-6 months, then CT at 18-24 months. Fleischner Society criteria for SUB-SOLID lung nodule followup. Solitary pure ground-glass nodules<6 mm (ground glass or part solid)No followup needed. 6 mm or larger (ground glass)CT at 6-12 months to confirm persistence, then CT every 2 years until 5 years.6 mm or larger (part solid)CT at 3-6 months to confirm persistence, then annual CT until 5 years if unchanged and solid component remains <6 mm. Multiple sub-solid nodules<6 mmCT at 3-6 months, then CT consider at 2 & 4 years for high risk patients. [address] at 3-6 months. Subsequent management based on most suspicious lesions. Recommendations do not apply to lung cancer screening, patients with immunosuppression, or patients with known primary cancer. Dictated by: Dionisio Rocha M.D. on 02/26/2021 at 14:34 Approved by: Dionisio Rocha M.D. on 02/26/2021 at 14:48
== END ==
PROVIDERS: PCP Nurse Practitioner Family; Referring Provider Internal Medicine Hematology & Oncology; Visit Provider Internal Medicine Hematology & Oncology
DX: C50.919 Malignant neoplasm of unspecified site of unspecified female breast (principal); R91.8 Other nonspecific abnormal finding of lung field; N20.0 Calculus of kidney
CPT/HCPCS: 71250

== ENCOUNTER → 2021-03-01 12:04 | Outpatient (CLI) | payer OTHER, SELFPAY ==
[2021-03-01 13:48] LABS: HEMOLYSIS 19 (0-50)
[2021-03-01 13:50] LABS: Potassium 4.6 mmol/L (3.4-5.1)
== END ==
PROVIDERS: PCP Nurse Practitioner Family; Referring Provider Nurse Practitioner Family; Visit Provider Nurse Practitioner Family
DX: E87.5 Hyperkalemia (principal)
CPT/HCPCS: 36415; 84132

== ENCOUNTER → 2021-06-20 11:19 | Outpatient (CLI) | payer OTHER, SELFPAY ==
--- NOTE | 2021-06-20 11:20 | DI.RAD.S_ITS ---
PROCEDURE: XR DEXA AXIAL SKELETON INDICATIONS: osteopenia COMPARISON: [facility], CR, XR DEXA AXIAL SKELETON, 04/05/2020, 13:51. FINDINGS: This blank DEXA report has been sent in error by the PACS system. The correct and complete report will be forthcoming in 1-2 days. Thank you for your patience and understanding. Dictated by: Demetrice Amaro MD, PhD on 06/20/2021 at 12:50 Approved by: Demetrice Amaro MD, PhD on 06/20/2021 at 12:50
== END ==
PROVIDERS: PCP Nurse Practitioner Family; Referring Provider Nurse Practitioner Family; Visit Provider Nurse Practitioner Family
DX: M85.852 Other specified disorders of bone density and structure, left thigh; Z78.0 Asymptomatic menopausal state; Z85.3 Personal history of malignant neoplasm of breast
CPT/HCPCS: 77080

== ENCOUNTER → 2022-02-22 09:47 | Outpatient (CLI) | payer BC, SELFPAY ==
--- NOTE | 2022-02-22 10:15 | DI.MG.S_ITS ---
BILATERAL DIGITAL SCREENING MAMMOGRAM 3D/2D WITH CAD: 02/22/2022 CLINICAL: Routine screening. Personal history of right breast cancer. Comparison is made to exams dated: 02/21/2021 mammogram - [facility], 02/19/2020 mammogram, and 12/23/2018 mammogram - [facility]. The tissue of both breasts is predominantly fatty. Current study was also evaluated with a Computer Aided Detection (CAD) system. There are benign calcifications in the left breast. There also are benign post operative findings in the right breast. No significant masses, calcifications, or other findings are seen in either breast. There has been no significant interval change. IMPRESSION: BENIGN There is no mammographic evidence of malignancy. A 1 year screening mammogram is recommended. This exam was interpreted at Station ID: [id number]. NOTE: For mammograms, a report in lay terms will be sent to the patient. Approximately 15% of breast malignancies will not be visualized mammographically. In the management of a palpable breast mass, a negative mammogram must not discourage biopsy of a clinically suspicious lesion. Electronically Signed By: Chelsea fine/rc:02/22/2022 12:35:59 letter sent: Normal Exam ACR BI-RADS Category 2: Benign Finding(s) 3342F
== END ==
PROVIDERS: PCP Family Medicine; Referring Provider Internal Medicine Hematology & Oncology; Visit Provider Internal Medicine Hematology & Oncology
DX: Z12.31 Encounter for screening mammogram for malignant neoplasm of breast; C50.911 Malignant neoplasm of unspecified site of right female breast
CPT/HCPCS: 77063; 77067

== ENCOUNTER → 2022-12-12 07:57 | Outpatient (CLI) | payer BC, SELFPAY ==
--- NOTE | 2022-12-12 08:00 | DI.US.S_ITS ---
ULTRASOUND OF RIGHT BREAST: 12/12/2022 CLINICAL: Right axillary pain. Comparison is made to exams dated: 12/12/2022 mammogram, 02/22/2022 mammogram - [facility], 02/21/2021 mammogram - [facility], 02/19/2020 mammogram, and 12/23/2018 mammogram - [facility]. Color flow and Doppler ultrasound of the right breast were performed. Patel scale images of the real-time examination were reviewed. No abnormality which corresponds with the area of pain is identified. IMPRESSION: NEGATIVE There is no sonographic evidence of malignancy. There is no abnormality seen in the right axilla to correspond with the area of clinical concern and pain in the right axilla, however, clinical followup is recommended. Return to annual mammogram screening schedule is recommended. This exam was interpreted at Station ID: [id number]. Electronically Signed By: Mina Velasquez M.D. acr/:12/12/2022 09:34:48 letter sent: Clinical Evaluation Ultrasound BI-RADS: 1 Negative
--- NOTE | 2022-12-12 08:00 | DI.MG.S_ITS ---
BILATERAL DIGITAL DIAGNOSTIC MAMMOGRAM 3D/2D POST LUMPECTOMY: 12/12/2022 CLINICAL: Right breast pain. Comparison is made to exams dated: 02/22/2022 mammogram - [facility], 02/21/2021 mammogram - [facility], and 02/19/2020 mammogram - [facility]. Both breasts are almost entirely fatty (category a/<25% glandular tissue). There are benign calcifications in the left breast. There also are benign post operative findings in the right breast. There is a mole marker on the right breast. There are mole markers on the left breast. No significant masses, calcifications, or other findings are seen in either breast. IMPRESSION: INCOMPLETE: NEEDS ADDITIONAL IMAGING EVALUATION There is no abnormality seen in the right axilla to correspond with the area of clinical concern and pain in the right axilla, however, ultrasound is recommended. US will be performed and dictated separately. This exam was interpreted at Station ID: [id number]. NOTE: For mammograms, a report in lay terms will be sent to the patient. Approximately 15% of breast malignancies will not be visualized mammographically. In the management of a palpable breast mass, a negative mammogram must not discourage biopsy of a clinically suspicious lesion. Electronically Signed By: Mina Velasquez M.D. acr/:12/12/2022 08:39:48 ACR BI-RADS Category 0: Incomplete [id number]
== END ==
PROVIDERS: Referring Provider Internal Medicine Hematology & Oncology; Visit Provider Internal Medicine Hematology & Oncology
DX: C50.911 Malignant neoplasm of unspecified site of right female breast (principal); N64.4 Mastodynia; R92.2 Inconclusive mammogram
CPT/HCPCS: 76642; 77066; G0279

== ENCOUNTER → 2023-02-25 10:52 | Outpatient (CLI) | payer BC, SELFPAY ==
--- NOTE | 2023-02-25 10:55 | DI.CT.S_ITS ---
PROCEDURE: CT CHEST WO CON INDICATIONS: pulmonary nodules TECHNIQUE: Noncontrast 5 mm thick sections acquired from the pulmonary apices to the posterior costophrenic angles. 1 mm lung window, 5 mm thick coronal and sagittal and 7 mm axial MIP reformats were then acquired. For radiation dose reduction, the following was used: automated exposure control, adjustment of mA and/or kV according to patient size. COMPARISON: [facility], CT, CT KIDNEY URETER BLADDER (KUB), 02/29/2020, 10:54. [facility], CT, CT CHEST WO CON, 02/26/2021, 13:11. FINDINGS: Lungs and pleura: Multiple pulmonary nodules present as before, examples include: -right lower lobe along the hemidiaphragm: 9 mm ground-glass nodule (3/209) unchanged when remeasured on the prior exam. -left lower lobe: 3 and 4 mm nodules (3/157), unchanged. Other small ground-glass nodules (for example 3/135 and 3/134) also not significantly changed. No consolidation or pleural effusion. Mediastinum: No pericardial effusion. Thoracic aorta and central pulmonary arteries are normal in size. Esophagus is normal in caliber. Bones and chest wall: Multilevel degenerative change of the visualized spine. No axillary or supraclavicular adenopathy by size criteria. Abdomen: Partially imaged vague hypodensity at the posterior right lobe of the liver (2/60) may represent partial visualization of the previously demonstrated hepatic cyst near this area. Small nonobstructing stone left upper kidney. IMPRESSION: No significant change in previously demonstrated small pulmonary nodules. Dictated by: Ady Xiong M.D. on 02/25/2023 at 15:58 Approved by: Ady Xiong M.D. on 02/25/2023 at 16:15
== END ==
PROVIDERS: Referring Provider Internal Medicine Hematology & Oncology; Visit Provider Internal Medicine Hematology & Oncology
DX: C50.919 Malignant neoplasm of unspecified site of unspecified female breast (principal); R91.8 Other nonspecific abnormal finding of lung field
CPT/HCPCS: 71250

== ENCOUNTER → 2023-06-17 12:48 | Outpatient (CLI) | payer BC, SELFPAY ==
--- NOTE | 2023-06-17 | DI.RAD.S_ITS ---
PROCEDURE: XR ABDOMEN 1V INDICATIONS: Personal history of urinary calculi TECHNIQUE: One view of the abdomen acquired. COMPARISON: [facility], CR, XR ABDOMEN 1 VIEW, 07/05/2022, 13:34. FINDINGS: Surgical changes and devices: Surgical clips in the right lower quadrant of the abdomen, possibly prior appendectomy. Bowel: Bowel gas pattern is normal. Soft tissues: No suspicious abdominal calcifications. Visualized solid organ contours appear normal in size. Bones: No suspicious bony lesions. IMPRESSION: No suspicious intra-abdominal calcifications. Dictated by: Chelsea Basurto M.D. on 06/17/2023 at 13:38 Approved by: Chelsea Basurto M.D. on 06/17/2023 at 13:39
== END ==
PROVIDERS: Referring Provider Physician Assistant Medical; Visit Provider Physician Assistant Medical
DX: Z87.442 Personal history of urinary calculi (principal)
CPT/HCPCS: 74018

== ENCOUNTER → 2023-07-06 10:39 | Outpatient (CLI) | payer BC, SELFPAY | PROVIDERS: Visit Provider Nurse Practitioner Family | DX: R10.9 Unspecified abdominal pain (principal) | CPT/HCPCS: 87077; 87086; 87186 ==

== ENCOUNTER → 2023-12-17 11:59 | Outpatient (CLI) | payer BC, SELFPAY ==
--- NOTE | 2023-12-17 12:00 | DI.MG.S_ITS ---
BILATERAL DIGITAL SCREENING MAMMOGRAM 3D/2D WITH CAD: 12/17/2023 CLINICAL: Routine screening. Personal history of right breast cancer. Comparison is made to exams dated: 12/12/2022 mammogram, 02/22/2022 mammogram - [facility], 02/21/2021 mammogram - [facility], and 02/19/2020 mammogram - [facility]. Both breasts are almost entirely fatty (category a/<25% glandular tissue). Current study was also evaluated with a Computer Aided Detection (CAD) system. There are benign calcifications in the left breast. There also are benign post operative findings in the right breast. No significant masses, calcifications, or other findings are seen in either breast. There has been no significant interval change. IMPRESSION: BENIGN There is no mammographic evidence of malignancy. A 1 year screening mammogram is recommended. This exam was interpreted at Station ID: [id number]. NOTE: For mammograms, a report in lay terms will be sent to the patient. Approximately 15% of breast malignancies will not be visualized mammographically. In the management of a palpable breast mass, a negative mammogram must not discourage biopsy of a clinically suspicious lesion. Electronically Signed By: Roslyn fleming/rc:12/17/2023 13:19:38 letter sent: Normal Exam ACR BI-RADS Category 2: Benign Finding(s) 3342F
[2023-12-17 12:52] LABS: Add Manual Diff / Slide Review NO; Basophils Absolute Auto 0 /uL (0-100); Basophils Percent Auto 1.2 % (0-2); Eosinophils Absolute Auto 100 /uL (0-450); Eosinophils Percent Auto 3.6 % (2-4); Hemoglobin 14.5 g/dL (12.0-16.0); Lymphocytes Absolute Auto 1700 /uL (1100-4500); Lymphocytes Percent Auto 43.8 % (25-40); Mean Corpuscular Hemoglobin 29.6 PG (26-34); Mean Corpuscular Volume 89.6 fL (80-100); Monocytes Absolute Auto 400 /uL (0-900); Neutrophils Absolute Auto 1600 /uL (1500-7000); Neutrophils Percent Auto 41.4 % (50-75); Platelet Count 225 X10^3/uL (150-400); Red Blood Cell Count 4.91 X10^6/uL (4.0-5.2); Red Cell Distribution Width 14.1 % (11.6-14.8); White Blood Cell Count 3.8 X10^3/uL (4.5-11.0)
[2023-12-17 13:29] LABS: Alanine Aminotransferase 27 IU/L (<35); Albumin 4.3 g/dL (3.5-5.0); Albumin Globulin Ratio 1.5 (1.0-2.8); Alkaline Phosphatase 71 U/L (38-126); Aspartate Aminotransferase 28 IU/L (14-36); BUN Creatinine Ratio 15.9 (6-22); Bilirubin Total 0.7 mg/dL (0.2-1.3); Blood Urea Nitrogen 11 mg/dL (7-17); Calcium 9.7 mg/dL (8.4-10.2); Carbon Dioxide 24 mmol/L (22-32); Chloride 108 mmol/L (98-107); Estimated Glomerular Filt Rate > 60 mL/min (>60); Globulin 2.9 g/dL (1.7-4.1); Glucose 89 mg/dL (80-110); HEMOLYSIS < 15 (0-50); Potassium 4.2 mmol/L (3.4-5.1); Sodium 140 mmol/L (137-145); Total Protein 7.2 g/dL (6.3-8.2)
== END ==
PROVIDERS: Referring Provider Internal Medicine Hematology & Oncology; Visit Provider Internal Medicine Hematology & Oncology
DX: Z12.31 Encounter for screening mammogram for malignant neoplasm of breast (principal); R92.313 Mammographic fatty tissue density, bilateral breasts; C50.919 Malignant neoplasm of unspecified site of unspecified female breast
CPT/HCPCS: 36415; 77063; 77067; 80053; 85025